=== PATIENT | male | born 1990 | race African-American/Black ===

== ENCOUNTER 2019-08-17 04:33 | Emergency (ER) | payer MEDICAID ==
[~2019-08-17] VITALS: Ht 180.3 cm; Wt 72.6 kg
[2019-08-17 04:40] VITALS: BP 130/73
--- NOTE | 2019-08-17 04:40 | NUR ---
ED Nurse Note: Pt aaox4 with a delay in eladio baca witn no acute dsitress. BS 521, MD notified. Pt is coolerative and well groomed. Pt BIBA RA 26 from home c/o hyperglycemia. Pt on youth nutritional monitor and room air.
--- NOTE | 2019-08-17 04:43 | Emergency Room Report ---
History of Present Illness General Chief Complaint: Hypertension Source: Patient Present Illness HPI This is a 29-year-old male with history of diabetes type 1. He also has a history of DKA in the past. Presents with chief complaint of weakness and high blood sugar. He has been out of his insulin for the last 2 days. He dropped his insulin bottle couple days ago. He denies any fever chills but no nausea no vomiting. [place] weak. Allergies: Coded Allergies: No Known Allergies (Unverified , 08/17/19) Patient History Past Medical History: see triage record, old chart reviewed, DM Past Surgical History: none Pertinent Family History: none Social History: Denies: smoking Immunizations: other Reviewed Nursing Documentation: PMH: Agreed; PSxH: Agreed Nursing Documentation-PMH Past Medical History: No History, Except For Hx Cardiac Problems: No Hx Hypertension: No Hx Pacemaker: No Hx Asthma: No Hx COPD: No Hx Diabetes: Yes Hx Cancer: No Hx Gastrointestinal Problems: No Hx Dialysis: No History Of Psychiatric Problem: No Hx Neurological Problems: No Hx Cerebrovascular Accident: No Hx Seizures: Yes Review of Systems Constitutional: Reports: weakness Eye: Denies: eye pain, blurred vision ENT: Denies: ear pain, nose congestion, throat swelling Respiratory: Denies: cough, shortness of breath Cardiovascular: Denies: chest pain, palpitations Gastrointestinal: Denies: abdominal pain, diarrhea, nausea, vomiting Musculoskeletal: Denies: back pain, joint pain Skin: Denies: rash Neurological: Denies: headache, numbness Endocrine: Denies: increased thirst, increased urine Hematologic/Lymphatic: Denies: easy bruising All Other Systems: negative except mentioned in HPI Physical Exam Vital Signs Date Time Temp Pulse Resp B/P (MAP) Pulse Ox O2 Delivery O2 Flow Rate FiO2 08/17/19 04:32 99.0 120 20 136/72 (93) 100 Room Air Vitals with tachycardia. Repeat heart rate 84 Sp02 EP Interpretation: reviewed, normal General Appearance: well appearing, no apparent distress, alert Head: normocephalic, atraumatic Eyes: bilateral eye PERRL, bilateral eye EOMI ENT: hearing grossly normal, normal pharynx Neck: full range of motion, supple, no meningismus Respiratory: chest non-tender, lungs clear, normal breath sounds Cardiovascular #1: regular rate, rhythm, no murmur Gastrointestinal: normal bowel sounds, non tender, no mass, no organomegaly, no bruit, non-distended Musculoskeletal: back normal, normal range of motion, gait/station normal Psychiatric: mood/affect normal Medical Decision Making Diagnostic Impression: Primary Impression: Hyperglycemia due to type 1 diabetes mellitus ER Course Patient presents with hyperglycemia because he is out of his insulin. No evidence of DKA. No evidence of infection. Will discharge home. Last Vital Signs Date Time Temp Pulse Resp B/P (MAP) Pulse Ox O2 Delivery O2 Flow Rate FiO2 08/17/19 04:32 99.0 120 20 136/72 (93) 100 Room Air Status: improved Disposition: HOME, SELF-CARE Condition: Improved Scripts Insulin Regular, Human (HUMULIN R) 100 Unit/1 Ml Vial 25 UNITS SUBQ TID, #1 VIAL Prov: Tye Covarrubias MD 08/17/19 Nph, Human Insulin Isophane* (NOVOLIN N*) 100 Unit/1 Ml Vial 25 UNITS SUBQ TID, #1 VIAL Prov: Tye Covarrubias MD 08/17/19 Additional Instructions: Increase fluids. Take your insulin. Follow-up with your doctor in 7 days. Return if worse. Tye Covarrubias MD Aug 17, 2019 04:43
[2019-08-17] MEDS ORDERED: Insulin Human Regular 100units/ml 3ml IV ONE ×2 (04:45→06:15)
--- NOTE | 2019-08-17 04:50 | NUR ---
ED Nurse Note: blood and urine sent to lab.
[2019-08-17 05:18] LABS: APPEARANCE,URINE CLEAR; BILIRUBIN, URINE NEGATIVE (NEGATIVE); COLOR,URINE PALE YELLOW; GLUCOSE, URINE (UA) 4+ (NEGATIVE); KETONES,URINE 2+ (NEGATIVE); LEUKOCYTE ESTERASE ,URINE NEGATIVE (NEGATIVE); NITRITE,URINE NEGATIVE (NEGATIVE); PH,URINE 6 (4.5-8.0); PROTEIN,URINE NEGATIVE (NEGATIVE); UROBILINOGEN,URINE NORMAL MG/DL (0.0-1.0)
[2019-08-17 05:21] LABS: BASOPHILS % (AUTO) 1.9 % (0.0-2.0); EOSINOPHILS % (AUTO) 3.2 % (0.0-3.0); HEMATOCRIT 44.1 % (42.0-52.0); HEMOGLOBIN 14.4 G/DL (14.2-18.0); LYMPHOCYTES % (AUTO) 42.1 % (20.0-45.0); MEAN CORPUSCULAR VOLUME 91 FL (80-99); MONOCYTES % (AUTO) 8.8 % (1.0-10.0); NEUTROPHILS % (AUTO) 44.1 % (45.0-75.0); PLATELET COUNT 315 K/UL (150-450); RED BLOOD COUNT 4.87 M/UL (4.70-6.10); RED CELL DISTRIBUTION WIDTH 12.3 % (11.6-14.8); WHITE BLOOD COUNT 5.4 K/UL (4.8-10.8)
[2019-08-17 05:26] LABS: ANION GAP 9 mmol/L (5-15); BLOOD UREA NITROGEN 13 mg/dL (7-18); CALCIUM 9.6 MG/DL (8.5-10.1); CARBON DIOXIDE 30 MMOL/L (21-32); CHLORIDE 94 MMOL/L (98-107); POTASSIUM 5.3 MMOL/L (3.5-5.1); SODIUM 133 MMOL/L (136-145)
--- NOTE | 2019-08-17 05:28 | NUR ---
ED Nurse Note: Pt is aaox4 and requesting food and drinks. notified and approved.
[2019-08-17 05:46] VITALS: BP 125/79
--- NOTE | 2019-08-17 05:54 | NUR ---
ED Nurse Note: ROSLYN Hirsch MD notified.
[2019-08-17] MEDS ORDERED: HUMULIN R100 UNIT/1 SUBQ (06:07)
[2019-08-17] MEDS ORDERED: NOVOLIN N100 UNIT/1 SUBQ (06:07)
[2019-08-17 06:12] VITALS: BP 134/81
--- NOTE | 2019-08-17 06:12 | NUR ---
ER DISCHARGE NOTE: Patient is cleared to be discharged per ERMD, pt is aox4, on room air, with stable vital signs. pt was given dc and prescription instructions, pt was able to verbalize understanding, pt id band and iv site removed without complications. pt is able to ambulate with steady gait. pt took all belongings. Pt left ED via taxi.
== END 2019-08-17 06:12 | disposition home or self-care (01) ==
LOC: EDBD 04:33 → EMR 05:10
DX: E10.65 Type 1 diabetes mellitus with hyperglycemia (principal); Z79.4 Long term (current) use of insulin; R56.9 Unspecified convulsions
CPT/HCPCS: 36415; 80048; 80307; 81001; 85025; 96361; 96374; 96376; J1815; Z7502; 99284